=== PATIENT | female | born 1995 | race African-American/Black ===

== ENCOUNTER 2024-03-09 05:50 | Emergency (ER) | payer OTHER ==
[~2024-03-09] VITALS: Ht 170.2 cm; Wt 63.0 kg
[2024-03-09 06:15] VITALS: O2SAT 99
[2024-03-09] MEDS ORDERED: OFLO5DRO4 LEFT EAR (08:15)
[2024-03-09] MEDS ORDERED: ISOP30DR11 EACH EAR (08:15)
[2024-03-09 09:34] VITALS: BP 118/77; PULSE 71; RESP 18; TEMP 36.83628; O2SAT 99
== END 2024-03-09 09:35 | disposition home or self-care (01) ==
LOC: ER 06:13
DX: H61.22 Impacted cerumen, left ear (principal)
CPT/HCPCS: 69210; 99283; 99284